=== PATIENT | male | born 1950 | race Caucasian/White ===

== ENCOUNTER 2018-03-07 10:08 | Emergency (ER) | payer MEDICARE, OTHER ==
[2018-03-07] MEDS ORDERED: ASPIRIN 81 MG CHEWABLE CTB PO STA (10:15)
[2018-03-07] MEDS ORDERED: MORPHINE SULFATE 10 MG/ML SOL IV PRN (10:15)
[2018-03-07] MEDS ORDERED: SODIUM CHLORIDE 0.9% FLUSH 10 ML SOL IV PRN (10:15)
[2018-03-07] MEDS ORDERED: NITROGLYCERIN 0.4 MG TAB SL ONE (10:17)
[2018-03-07] MEDS ORDERED: ASPIRIN 81 MG CHEWABLE CTB ONE (10:17)
[2018-03-07] MEDS: NITROGLYCERIN 0.4 MG TAB SL PRN ×2 (10:19→10:25)
[2018-03-07] MEDS ORDERED: METOPROLOL TARTRATE 5 MG/5 ML SOL IV ONE ×2 (10:23→10:33)
[2018-03-07] MEDS ORDERED: TICAGRELOR 90 MG TAB PO ONE ×3 (10:23→10:35)
[2018-03-07] MEDS ORDERED: HEPARIN SODIUM 5000 U/ML SOL IV ONE (10:25)
[2018-03-07 10:26] LABS: BASOPHILS % (AUTO) 1 % (0-3); EOSINOPHILS % (AUTO) 1 % (0-9); HEMATOCRIT 48 % (39-53); HEMOGLOBIN 15.4 gm/dl (13.5-17.7); LYMPHOCYTES % (AUTO) 17.1 % (10-50); MEAN CORPUSCULAR HEMOGLOBIN 28.3 pg (27.0-32.0); MEAN CORPUSCULAR HGB CONC 31.8 gm/dl (32.0-36.0); MEAN CORPUSCULAR VOLUME 89 fL (80-100); MONOCYTES % (AUTO) 5.5 % (0-12); NEUTROPHILS % (AUTO) 76.2 % (37-80)
[2018-03-07] MEDS ORDERED: MORPHINE SULFATE 10 MG/ML SOL ONE (10:33)
[2018-03-07 10:34] LABS: INR 1.13 (0.86-1.12)
[2018-03-07] MEDS ORDERED: HEPARIN SODIUM 5000 U/ML 25,000 U in DEXTROSE 250 ML 250 ML IV PRN (10:34)
[2018-03-07] MEDS ORDERED: HEPARIN SODIUM 5000 U/ML SOL ONE ×2 (10:35→10:41)
[2018-03-07 10:42] LABS: BLOOD UREA NITROGEN 21 mg/dl (7-18); CARBON DIOXIDE 24.8 mEq/L (21-32); CHLORIDE 104 mMol/L (98-107); CREATINE KINASE 212 U/L (39-308); GLUCOSE 133 mg/dl (74-106); POTASSIUM 3.7 mMol/L (3.5-5.1); SODIUM 140 mMol/L (136-145); TROP I < 0.017 ng/ml (0.000-0.056)
[2018-03-07 10:44] VITALS: TEMP 97.7
[2018-03-07 11:06] VITALS: BP 144/95; PULSE 82; RESP 15; O2SAT 97
== END 2018-03-07 10:58 | disposition short-term general hospital (02) | DRG 282 ==
LOC: ED 10:08
DX: I21.3 ST elevation (STEMI) myocardial infarction of unspecified site (principal); R00.0 Tachycardia, unspecified
CPT/HCPCS: 71045; 80048; 82550; 84484; 85025; 85610; 85730; 93005; 96374; 96375; 99291; J1644; J2270; A9270-GY; J3490